=== PATIENT | male | born 1940 | race Caucasian/White ===

== ENCOUNTER → 2018-04-22 08:42 | Outpatient (CLI) | payer MEDICARE, BC, SELFPAY ==
--- NOTE | 2018-04-22 | DI.CT.S_ITS ---
PROCEDURE: CT CHEST ABD PEL W CON INDICATIONS: PROSTATE CANCER TECHNIQUE: After the administration of oral and intravenous contrast, 5 mm thick sections acquired from the lung apices to the symphysis. 5 mm coronal and sagittal reformats were performed, with additional 7 mm coronal MIP reformats through the lungs. For radiation dose reduction, the following was used: automated exposure control, adjustment of mA and/or kV according to patient size. COMPARISON: None. FINDINGS: Image quality: Excellent. CHEST: Lungs and pleura: No acute consolidation. No pleural effusions or pneumothorax. Central and peripheral airways appear patent and normal in caliber. Mediastinum: Heart size is borderline enlarged. Coronary artery calcifications noted. No pericardial effusion. No mediastinal or hilar adenopathy by size criteria. Thoracic aorta and central pulmonary arteries are normal in size. Esophagus is normal in caliber. Small hiatal hernia. Chest wall: No axillary or supraclavicular adenopathy by size criteria. Thyroid gland appears atrophic otherwise unremarkable. ABDOMEN: Solid organs: Liver is normal in size and enhancement. Gallbladder surgically absent. Biliary system is non dilated. Pancreas enhances normally. Spleen is normal in size and enhancement. No adrenal nodules. Kidneys demonstrate normal size and enhancement, without hydronephrosis. Nonobstructing 5 mm left renal calculus Peritoneum and bowel: Bowel loops demonstrate normal wall thickness and caliber. No free fluid or air. Appendix appears normal. The rectum is grossly unremarkable. There is moderate to large amount of retained stool. Mild left-sided asymmetric enlargement of the prostate. Nodes and vessels: No retroperitoneal or mesenteric adenopathy by size criteria. Shotty retroperitoneal lymph nodes although no pathologic enlargement and age indeterminate. Aorta and inferior vena cava are normal in size. Miscellaneous: No ventral hernias. PELVIS: Genitourinary: Questionable mild circumferential bladder wall thickening although nonspecific. Unremarkable unenhanced appearance of the seminal vesicles Miscellaneous: Small bilateral fat containing inguinal hernias. No adenopathy. Bones: No suspicious bony lesions. Multilevel discogenic changes No vertebral body compression fractures. IMPRESSION: No lymphadenopathy or evidence of distant metastatic disease. Small bilateral fat-containing inguinal hernias. Questionable/mild circumferential bladder wall thickening. This finding is nonspecific and technically age indeterminate. Please correlate clinically and if needed with urinalysis data, or cystoscopy. Coronary artery disease. Small hiatal hernia. Nonobstructive 5 mm left renal calculus. Dictated by: Ted Madrid M.D. on 04/22/2018 at 10:40 Approved by: Ted Madrid M.D. on 04/22/2018 at 10:57
--- NOTE | 2018-04-22 | DI.NM.S_ITS ---
PROCEDURE: NM BONE SCAN WHOLE BODY RADIOPHARMACEUTICAL: 21.7 mCi Tc-99m MDP IV. INDICATIONS: PROSTATE CANCER TECHNIQUE: Delayed whole-body scintigrams were obtained approximately 3-4 hours after intravenous injection of radiotracer. Anterior and posterior views were acquired from vertex to feet. Additional left and right oblique views of the pelvis and lower lumbosacral spine were obtained. COMPARISON: [facility], CT, CT CHEST ABD PEL W CON, 04/22/2018, 10:11. FINDINGS: There is elevated isotope uptake at the L4-5 disc region, but on prior recent CT scanning from today this same area can be seen to be sclerotic related to moderately severe near [id number] endplate articulation, from chronic degenerative disc disease. No focus of abnormal isotope uptake is seen that would indicate likelihood of underlying prostate carcinoma metastasis. Note is made of asymmetric degenerative change at the base of the first metacarpal region bilaterally, left greater than right. IMPRESSION: No evidence of metastatic disease related to prostate carcinoma. Relatively prominent isotope uptake is seen on EEG side of the L4-5 disc space correlated with sclerosis in that area due to moderately severe degenerative disc disease chronic in appearance seen on CT scanning earlier today. Mild degenerative changes as discussed. Normal urinary tract isotope visualization. Dictated by: Chris العراقي M.D. on 04/22/2018 at 16:20 Approved by: Chris العراقي M.D. on 04/22/2018 at 16:23
[2018-04-22 10:03] LABS: BUN Creatinine Ratio 21.1 (6-22); Blood Urea Nitrogen 19 mg/dL (9-20); Estimated Glomerular Filt Rate > 60.0 mL/min (>60)
== END ==
PROVIDERS: Family Provider Internal Medicine; PCP Internal Medicine; Visit Provider Urology
DX: C61 Malignant neoplasm of prostate (principal); K40.20 Bilateral inguinal hernia, without obstruction or gangrene, not specified as recurrent; I25.10 Atherosclerotic heart disease of native coronary artery without angina pectoris; K44.9 Diaphragmatic hernia without obstruction or gangrene; N20.0 Calculus of kidney; M51.36 Other intervertebral disc degeneration, lumbar region
CPT/HCPCS: 36415; 71260; 74177; 78306; 82565; 84520; A9503; Q9967

== ENCOUNTER → 2021-01-28 13:11 | Outpatient (CLI) | payer MEDICARE, BC, SELFPAY ==
--- NOTE | 2021-01-28 | DI.ECHO.S_ITS ---
[facility]---------+ [facility] +---------+ : : [address] : [place] : : : : [id number] : : : : Phone: [phone] Echocardiogram Report + + :Name: REJI RIVERA Study Date: 01/28/2021 Height: 73 in : :[facility] ReadingLocation: Weight: 175 lb : : Gender: Male BSA: 2.0 m2 : :: 1940 Age: 80 yrs BP: 151/87 mmHg: :Reason For Study: THORACIC AORTIC ECTASIA : :Ordering Physician: LUIS A, : :ENRIUQE Performed By: Bindu Douglas : :Referring: ENRIQUE GUNN : + + Interpretation Summary The left ventricle is mildly dilated. Left ventricular ejection fraction is estimated to be 35 +/- 5%. There has been no significant change in LVEF since the previous exam. There is inferior wall akinesis. There is posterolateral wall severe hypokinesis. There is apical hypokinesis. No significant change from the previous study. The right ventricle is grossly normal size. Right ventricular systolic function is at the lower limits of normal. There is a pacemaker lead in the right ventricle. There is moderate mitral regurgitation. There is moderate aortic regurgitation. There is moderate tricuspid regurgitation. In comparison to previous study, there is mild increase in MR, AR, and TR. The right ventricular systolic pressure is estimated to be at least 37 mmHg based on an estimated right atrial pressure of 15 mm Hg. Compared to the prior echo exam, there has been no change in the severity of pulmonary hypertension. The ascending aorta is moderately enlarged. 4.4 cm in diameter. Unchanged from the previous study. Moderate atherosclerotic plaque(s) in the aortic arch. Procedure: A two-dimensional transthoracic echocardiogram with color flow and Doppler was performed. The study quality was technically adequate. Comparison is made with the echocardiogram of 03/07/2019. The heart rate ranged between 60-70 bpm during the study. The patient has a paced rhythm. Left Ventricle: The estimated left ventricular end diastolic volume is 127 ml. The left ventricle is mildly dilated. There is normal left ventricular wall thickness. There is no thrombus. Left ventricular ejection fraction is estimated to be 35 +/- 5%. There has been no significant change since the previous exam. There is inferior wall akinesis. There is posterolateral wall severe hypokinesis. There is apical hypokinesis. No significant change from the previous study. Diastolic parameters suggest a relaxation abnormality of the left ventricle, consistent with probable normal filling pressures. Right Ventricle: There is a pacemaker lead in the right ventricle. The right ventricle is grossly normal size. Right ventricular systolic function is at the lower limits of normal. Atria: The left atrium is moderately dilated. The left atrium has remained unchanged in size since the prior echo exam. Right atrial size is normal. There is no Doppler evidence for an interatrial shunt. Mitral Valve: There is mild mitral annular calcification. There is moderate mitral regurgitation. Aortic Valve: There is mild aortic valve sclerosis. The aortic valve is trileaflet. The aortic valve opens well. There is no aortic valve stenosis. There is moderate aortic regurgitation. Tricuspid Valve: The tricuspid valve is normal in structure and function. There is moderate tricuspid regurgitation. Eccentric regurgitation jet. Compared to the prior echo exam, there has been an increase in TR severity. The right ventricular systolic pressure is estimated to be at least 37 mmHg based on an estimated right atrial pressure of 15 mm Hg. Compared to the prior echo exam, there has been no change in the severity of pulmonary hypertension. Pulmonic Valve: The pulmonic valve leaflets are thin and pliable; valve motion is normal. There is mild pulmonic regurgitation. Great Vessels: The aortic root is mildly dilated. The ascending aorta is moderately enlarged. Moderate atherosclerotic plaque(s) in the aortic arch. The IVC is dilated (diameter is greater than 2.1 cm) and it collapses less than 50% with a sniff. This suggests a high right atrial pressure of 15 mm Hg. Pericardium/ Pleura There is no pericardial effusion. There is no pleural effusion. MMode/2D Measurements & Calculations LVIDd: 6.1 cm LVOT diam: 2.2 cm LVIDs: 5.2 cm Ao root diam: 4.2 cm FS: 15.2 % asc Aorta Diam: 4.4 cm IVSd: 0.99 cm Ao Arch Diam (Prox Trans): 2.8 cm LVPWd: 0.84 cm LV cheng. diameter/BSA (cm/m^2): 3.0 LV sys. diameter/BSA (cm/m^2): 2.5 LA A2 area: 28.5 cm2 RA long axis: 5.9 cm LA A4 area: 23.1 cm2 RA area: 21.5 cm2 LA length (vol): 6.8 cm RA vol: 66.3 ml LA vol: 82.2 ml RA : 32.6 ml/m2 LA vol index: 40.4 ml/m2 IVC diam: 2.0 cm RVD1 (basal): 2.9 cm TAPSE: 1.6 cm Doppler Measurements & Calculations Ao V2 max: 105.3 cm/sec LVOT Max Feliz: 72.6 cm/sec Ao V2 mean: 78.5 cm/sec LV V1 max P.1 mmHg Ao max P.4 mmHg LV V1 VTI: 16.7 cm Ao mean P.7 mmHg LUIS(I,D): 2.9 cm2 Ao V2 VTI: 22.4 cm LUIS(V,D): 2.6 cm2 sev ratio: 0.74 LUIS indexed to BSA (cm^2/m^2): 1.4 AI P1/2t: 607.1 msec AI dec slope: 155.8 cm/sec2 MV E max feliz: 44.6 cm/sec TR max feliz: 233.7 cm/sec MV A max feliz: 67.3 cm/sec TR max P.8 mmHg MV E/A: 0.66 PA pr(Accel): 19.1 mmHg Med Peak E' Feliz: 4.6 cm/sec E/E' med: 9.8 Lat Peak E' Feliz: 5.2 cm/sec E/E' lat: 8.5 E/e' average: 9.1 MV dec time: 0.47 sec SV(LVOT): 64.0 ml Reading Physician:02:26 PM
== END ==
PROVIDERS: Family Provider Internal Medicine; PCP Internal Medicine; Referring Provider Internal Medicine Cardiovascular Disease; Visit Provider Internal Medicine Cardiovascular Disease
DX: I77.810 Thoracic aortic ectasia (principal); I08.3 Combined rheumatic disorders of mitral, aortic and tricuspid valves
CPT/HCPCS: 93306

== ENCOUNTER → 2021-09-18 10:09 | Outpatient (CLI) | payer MEDICARE, BC, SELFPAY ==
--- NOTE | 2021-09-18 | DI.RAD.S_ITS ---
PROCEDURE: XR CHEST 2V INDICATIONS: Presence of automatic (implantable) cardiac defibrillator TECHNIQUE: 2 views of the chest were acquired. COMPARISON: [facility], CT, CT CHEST WITHOUT CONTRAST, 03/14/2019, 14:29. [facility], CR, CHEST 2 VIEW, 09/17/2008, 8:42. FINDINGS: Surgical changes and devices: Left pacemaker with right atrial, right ventricular, and coronary sinus leads. Right ventricular AICD lead. Post median sternotomy and CABG. Lungs and pleura: Lungs appear clear. No pleural effusions or pneumothorax. Mediastinum: Mediastinal contours are unchanged. Heart size is prominent. Bones and chest wall: No suspicious bony abnormalities. Soft tissues appear unremarkable. IMPRESSION: No acute cardiopulmonary abnormality. Dictated by: Dionte Zuniga M.D. on 09/18/2021 at 10:47 Approved by: Dionte Zuniga M.D. on 09/18/2021 at 10:50
== END ==
PROVIDERS: Family Provider Internal Medicine; PCP Internal Medicine; Referring Provider Internal Medicine Cardiovascular Disease; Visit Provider Internal Medicine Cardiovascular Disease
DX: I25.5 Ischemic cardiomyopathy (principal); Z95.810 Presence of automatic (implantable) cardiac defibrillator; Z95.1 Presence of aortocoronary bypass graft
CPT/HCPCS: 71046

== ENCOUNTER → 2022-01-05 10:48 | Outpatient (CLI) | payer MEDICARE, BC, SELFPAY ==
[2022-01-05 13:18] LABS: COVID19 -Nasal RAPID Negative (Negative)
== END ==
PROVIDERS: Family Provider Internal Medicine; PCP Internal Medicine; Visit Provider Family Medicine Sleep Medicine
DX: Z20.822 Contact with and (suspected) exposure to COVID-19 (principal)
CPT/HCPCS: 87635; C9803

== ENCOUNTER → 2022-01-06 07:04 | Outpatient (CLI) | payer MEDICARE, BC, SELFPAY ==
--- NOTE | 2022-01-07 05:33 | DI.NM.S_ITS ---
DATE OF SERVICE: PROCEDURE: Pharmacological perfusion study. INDICATION: HFREF with underlying ischemic cardiomyopathy, coronary artery disease, automatic implantable cardioverter-defibrillator. RADIOPHARMACEUTICAL: 24.6 mCi technetium-99m Myoview IV was injected at stress and 7.7 mCi technetium-99m Myoview IV was injected at rest. CARDIAC STRESS: The patient underwent IV Lexiscan perfusion study under the supervision of an attending staff. The patient remained hemodynamically stable. Baseline blood pressure 140/78 mmHg. The patient felt minimal dyspnea. No chest discomfort. Baseline rhythm showed ventricular paced rhythm. During stress, there appears to be asensing and ventricular pacing. Cannot rule out atrial pacing as well. No ventricular tachycardia. RAW DATA: There appears to be increased subdiaphragmatic activity. GATED STUDY: Stress left ventricular ejection fraction 45 percent with inferior and inferolateral hypokinesis. Stress end-diastolic volume 175 mL. Lung/heart ratio 0.53, which is abnormal. TID ratio 0.95, which is within normal limits. MYOCARDIAL PERFUSION SCAN: Stress supine, resting supine and stress prone images were compared to each other. There appears to be predominantly fixed, large size, severely decreased perfusion of inferior wall extending into the inferior apex, as well as inferolateral wall consistent with old inferior wall, inferolateral and inferoapical infarction. No significant reversible ischemia. CONCLUSION: This is an abnormal myocardial perfusion study consistent with large size, severe infarction of inferior wall, inferolateral wall as well as inferior apex without any significant reversible ischemia. The stress left ventricular ejection fraction is 45 percent with inferior and inferolateral hypokinesis. The patient had a perfusion study in May,. At that time, also, patient had similar perfusion defect. At that time, left ventricular ejection fraction was 44 percent and resting end-diastolic volume 219 mL. Dimitri Garcia - YESSI/rhina/BRANDAN doc#: [id number]/job#: [id number] dd: 01/06/2022 17:34:00 dt: 01/06/2022 19:46:00 DICTATING MD/COPIES TO: Sayra Garcia MD COPIES MNE: LEOBARDO;
== END ==
PROVIDERS: Family Provider Internal Medicine; PCP Internal Medicine; Referring Provider Internal Medicine Cardiovascular Disease; Visit Provider Internal Medicine Cardiovascular Disease
DX: I50.22 Chronic systolic (congestive) heart failure (principal); R94.39 Abnormal result of other cardiovascular function study; I25.5 Ischemic cardiomyopathy; I25.10 Atherosclerotic heart disease of native coronary artery without angina pectoris; Z95.810 Presence of automatic (implantable) cardiac defibrillator
CPT/HCPCS: 78452; 93017; A9502; J2785

== ENCOUNTER → 2022-02-12 08:00 | Outpatient (CLI) | payer MEDICARE, BC, SELFPAY ==
--- NOTE | 2022-02-12 | DI.US.S_ITS ---
PROCEDURE: US CAROTID DOPPLER BI INDICATIONS: Occlusion and stenosis of bilateral carotid arteries TECHNIQUE: Color and pulse Doppler interrogation was performed of both carotid systems, with image documentation and velocity measurements. COMPARISON: [facility], , CAROTID ARTERY DOPPLER BILAT, 11/24/2017, 13:07. FINDINGS: Stenosis calculations are based on SRU (Society of Radiologists in Ultrasound) criteria. Right side: Brachial blood pressure: 141/78 mm Hg. Common carotid artery peak systolic velocity: 108 cm/sec. Internal carotid artery peak systolic velocity: 93 cm/sec. Internal carotid artery end diastolic velocity: 24 cm/sec. External carotid artery peak systolic velocity: 113 cm/sec. ICA/CCA peak systolic ratio: 0.9 . Evans scale imaging description: Moderate calcific plaque at the bifurcation Percent internal carotid artery stenosis: Less than 50% . Vertebral artery: Flow direction is antegrade. Left side: Brachial blood pressure: 145/81 mm Hg. Common carotid artery peak systolic velocity: 85 cm/sec. Internal carotid artery peak systolic velocity: 157 cm/sec. Internal carotid artery end diastolic velocity: 41 cm/sec. External carotid artery peak systolic velocity: 101 cm/sec. ICA/CCA peak systolic ratio: 1.9 . Evans scale imaging description: Moderate calcific plaque Percent internal carotid artery stenosis: 50-69% . Vertebral artery: Flow direction is antegrade. IMPRESSION: 1. 50-69% left internal carotid artery stenosis. 2. Less than 50% right internal carotid artery stenosis. 3. Antegrade vertebral artery flow bilaterally. Dictated by: Sammie Brandt M.D. on 02/12/2022 at 14:00 Approved by: Sammie Brandt M.D. on 02/12/2022 at 14:24
== END ==
PROVIDERS: Family Provider Internal Medicine; PCP Internal Medicine; Referring Provider Internal Medicine Cardiovascular Disease; Visit Provider Internal Medicine Cardiovascular Disease
DX: I65.23 Occlusion and stenosis of bilateral carotid arteries (principal)
CPT/HCPCS: 93880

== ENCOUNTER → 2023-08-18 09:22 | Outpatient (CLI) | payer MEDICARE, BC, SELFPAY ==
--- NOTE | 2023-08-18 09:24 | DI.US.S_ITS ---
PROCEDURE: US CAROTID DOPPLER BI INDICATIONS: CAROTID STENOSIS TECHNIQUE: Color and pulse Doppler interrogation was performed of both carotid systems, with image documentation and velocity measurements. COMPARISON: [facility], , US CAROTID DOPPLER BI, 02/12/2022, 8:49. FINDINGS: Stenosis calculations are based on SRU (Society of Radiologists in Ultrasound) criteria. Right side: Brachial blood pressure: 113 mm Hg. Common carotid artery peak systolic velocity: 89 cm/sec. Internal carotid artery peak systolic velocity: 105 cm/sec. Internal carotid artery end diastolic velocity: 29 cm/sec. External carotid artery peak systolic velocity: 110 cm/sec. ICA/CCA peak systolic ratio: 1.2 . Evans scale imaging description: Moderate atherosclerotic plaque Percent internal carotid artery stenosis: Less than 50% stenosis . Vertebral artery: Flow direction is antegrade. Left side: Brachial blood pressure: 107 mm Hg. Common carotid artery peak systolic velocity: 83 cm/sec. Internal carotid artery peak systolic velocity: 157 cm/sec. Internal carotid artery end diastolic velocity: 38 cm/sec. External carotid artery peak systolic velocity: 98 cm/sec. ICA/CCA peak systolic ratio: 1.9 . Evans scale imaging description: Moderate atherosclerotic plaque Percent internal carotid artery stenosis: Less than 50% stenosis . Vertebral artery: Flow direction is antegrade. IMPRESSION: 1. Right internal carotid artery demonstrates less than 50% stenosis. 2. Left internal carotid artery demonstrates 50-69% stenosis. 3. Antegrade vertebral artery flow bilaterally. Dictated by: Uriah German M.D. on 08/18/2023 at 17:00 Approved by: Uriah German M.D. on 08/18/2023 at 17:02
== END ==
LOC: US 09:23
PROVIDERS: Family Provider Internal Medicine; PCP Internal Medicine; Referring Provider Internal Medicine Cardiovascular Disease; Visit Provider Internal Medicine Cardiovascular Disease
DX: I65.23 Occlusion and stenosis of bilateral carotid arteries (principal)
CPT/HCPCS: 93880

== ENCOUNTER → 2024-04-18 11:51 | Outpatient (CLI) | payer MEDICARE, BC, SELFPAY ==
--- NOTE | 2024-04-18 11:52 | DI.ECHO.S_ITS ---
[facility] +---------+ [facility] : : [address] : : [place] : : [id number] : : Phone: [phone] Echocardiogram Report + + :Name: REJI RIVERA Study Date: 04/18/2024 Height: 73 in : :Hospital ReadingLocation: Weight: 172 lb : : Gender: Male BSA: 2.0 m2 : :: 1940 Age: 83 yrs BP: 120/67 mmHg: :Reason For Study: ASCENDING AORTA ENLARGEMENT : :Ordering Physician: LUIS A, : :ENRIQUE Performed By: Bindu Douglas : :Referring: ENRIQUE GUNN : + + Interpretation Summary The left ventricle is mildly dilated. The ejection fraction is estimated to be 40-45%. Previously LVEF:35 +/- 5%. Compared to the prior exam, the left ventricular function is improved. Akinetic basal to mid inferior wall extending into the basal to mid inferior lateral wall. In comparison to previous study apical hypokinesis improved. The right ventricle is normal in size and function. There is a pacemaker lead in the right ventricle. There is mild mitral regurgitation. Previously moderate MR. Compared to the prior echo study, there has been a decrease in the severity of mitral regurgitation. There is mild to moderate aortic regurgitation. Previously moderate aortic regurgitation. There is mild tricuspid regurgitation. Previously moderate TR. Compared to the prior echo exam, there has been a decrease in TR severity. The right ventricular systolic pressure is estimated to be at least 25 mmHg based on an estimated right atrial pressure of 3 mm Hg. Compared to the prior echo exam, there has been a decrease in the severity of pulmonary hypertension. The ascending aorta is moderately enlarged. 4.5 cm in diameter. Previously 4.4 cm. Moderate atherosclerotic plaque(s) in the aortic arch. This was seen on the prior study as well. Procedure: A two-dimensional transthoracic echocardiogram with color flow and Doppler was performed. The study quality was technically adequate. Comparison is made with the echocardiogram of 01/28/2021. The patient has a paced rhythm. The heart rate ranged between 60 bpm during the study. Left Ventricle: The left ventricle is mildly dilated. There is normal left ventricular wall thickness. There is no thrombus. The ejection fraction is estimated to be 40-45%. Compared to the prior exam, the left ventricular function is improved. Akinetic basal to mid inferior wall extending into the basal to mid inferior lateral wall. In comparison to previous study apical hypokinesis improved. MV E/A: 0.52 Med Peak E' Feliz: 3.2 cm/sec E/E' med: 12.8. Right Ventricle: The right ventricle is normal in size and function. There is a pacemaker lead in the right ventricle. Atria: The left atrium is mildly dilated. The left atrium has mildly decreased in size since the prior echo exam. Right atrial size is normal. There is a catheter/pacemaker lead seen in the right atrium. There is no Doppler evidence for an interatrial shunt. Mitral Valve: There is mild mitral annular calcification. There is mild mitral regurgitation. Compared to the prior echo study, there has been a decrease in the severity of mitral regurgitation. Aortic Valve: The aortic valve is trileaflet. The aortic valve opens well. There is no aortic valve stenosis. There is mild to moderate aortic regurgitation. Tricuspid Valve: The tricuspid valve is not well visualized, but is grossly normal. There is mild tricuspid regurgitation. The right ventricular systolic pressure is estimated to be at least 25 mmHg based on an estimated right atrial pressure of 3 mm Hg. Compared to the prior echo exam, there has been a decrease in TR severity. Compared to the prior echo exam, there has been a decrease in the severity of pulmonary hypertension. Pulmonic Valve: The pulmonic valve is not well visualized. There is no pulmonic valvular regurgitation. Great Vessels: The aortic root is normal size. The ascending aorta is moderately enlarged. Moderate atherosclerotic plaque(s) in the aortic arch. The IVC is of normal diameter and collapses greater than 50% with a sniff. This suggests a low right atrial pressure of 3 mm Hg. Pericardium/ Pleura There is no pericardial effusion. There is no pleural effusion. MMode/2D Measurements & Calculations LVIDd: 5.6 cm LVOT diam: 2.2 cm LVIDs: 4.7 cm Ao root diam: 3.9 cm FS: 16.9 % asc Aorta Diam: 4.5 cm EPSS: 2.1 cm Ao Arch Diam (Prox Trans): 2.8 cm IVSd: 1.1 cm LVPWd: 0.74 cm LV cheng. diameter/BSA (cm/m^2): 2.8 LV sys. diameter/BSA (cm/m^2): 2.3 LA A2 area: 24.3 cm2 RA long axis: 5.0 cm LA A4 area: 18.3 cm2 RA area: 14.7 cm2 LA length (vol): 5.2 cm RA vol: 36.9 ml LA vol: 72.7 ml RA : 18.3 ml/m2 LA vol index: 36.0 ml/m2 IVC diam: 1.9 cm RVD1 (basal): 3.4 cm RVD2 (mid): 3.1 cm TAPSE: 1.5 cm Doppler Measurements & Calculations Ao V2 max: 125.1 cm/sec LVOT Max Feliz: 82.0 cm/sec Ao V2 mean: 91.4 cm/sec LV V1 max P.7 mmHg Ao max P.3 mmHg LV V1 VTI: 20.9 cm Ao mean P.7 mmHg LUIS(I,D): 2.7 cm2 Ao V2 VTI: 28.2 cm LUIS(V,D): 2.4 cm2 sev ratio: 0.74 LUIS indexed to BSA (cm^2/m^2): 1.4 AI P1/2t: 610.7 msec AI dec slope: 149.7 cm/sec2 MV E max feliz: 40.7 cm/sec TR max feliz: 233.1 cm/sec MV A max feliz: 78.9 cm/sec TR max P.8 mmHg MV E/A: 0.52 PA V2 max: 68.2 cm/sec Med Peak E' Feliz: 3.2 cm/sec PA V2 mean: 48.8 cm/sec E/E' med: 12.8 PA mean P.0 mmHg Lat Peak E' Feliz: 6.3 cm/sec PA pr(Accel): 22.5 mmHg E/E' lat: 6.5 E/e' average: 9.6 MV dec time: 0.36 sec SV(LVOT): 77.4 ml Reading Physician:09:29 AM
== END ==
PROVIDERS: Family Provider Internal Medicine; PCP Internal Medicine; Referring Provider Internal Medicine Cardiovascular Disease; Visit Provider Internal Medicine Cardiovascular Disease
DX: I08.3 Combined rheumatic disorders of mitral, aortic and tricuspid valves (principal); I77.810 Thoracic aortic ectasia; I70.0 Atherosclerosis of aorta; Z95.0 Presence of cardiac pacemaker
CPT/HCPCS: 93306

== ENCOUNTER → 2025-02-14 09:20 | Outpatient (CLI) | payer MEDICARE, BC, SELFPAY | PROVIDERS: Family Provider Internal Medicine; PCP Internal Medicine; Referring Provider Internal Medicine Cardiovascular Disease; Visit Provider Internal Medicine Cardiovascular Disease | DX: Z79.899 Other long term (current) drug therapy (principal); R94.2 Abnormal results of pulmonary function studies | CPT/HCPCS: 94060; 94726; 94729 ==